=== PATIENT | female | born 1945 | race Caucasian/White ===

== ENCOUNTER 2017-11-18 06:29 | Day surgery (SDC) | payer OTHER ==
[~2017-11-18] VITALS: Ht 149.9 cm; Wt 70.3 kg
--- NOTE | ~2017-11-18 | O ---
[facility] [place] [address] OPERATIVE REPORT Name: ARNEL GODFREY Room #: DEP [facility] M.R.#: [id number] Admission: 11/18/17 Attend Phys: Boubacar Nava MD Discharge: 11/18/17 Date of : 47 Report #: [id number] THIS REPORT FOR: //name// CC: MARISOL Nava DATE OF SERVICE: 11/18/2017 PREOPERATIVE DIAGNOSES: Graves' disease, complete right-sided lid margin adhesion with complete visual occlusion. POSTOPERATIVE DIAGNOSES: Graves' disease, complete right-sided lid margin adhesion with complete visual occlusion. PROCEDURE: Right lid margin resection with reconstruction. SURGEON: Boubacar Nava M.D. POT HOLDER BINDER: None. ANESTHESIA: General. COMPLICATIONS: None. INDICATIONS FOR SURGERY: This pleasant 72-year-old woman with Graves' disease. 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 She presents today for a right lid margin resection and reconstruction in order to allow her to open the eye and allow her some useful vision out of that side. Informed consent was obtained to include but not limited to the potential risk for loss of vision, bleeding, infection and the potential need for reocclusion of the right eye if her cornea does not tolerate the eye being open. A lengthy discussion was undertaken as the prior procedure generally not undertaken without considerable duress and corneal decompensation. She understood the situation quite well and did want to have the eye open. DESCRIPTION OF PROCEDURE: The patient was taken to the operating room where general anesthesia was administered. The right upper and right lower lids were then anesthetized transcutaneously with Xylocaine with epinephrine mixed with Marcaine and Wydase. [facility] [address] [place] [address] OPERATIVE REPORT Name: ARNEL GODFREY Room #: DEP [facility].#: [id number] Admission: 11/18/17 Attend Phys: Boubacar Nava MD Discharge: 11/18/17 Date of : 47 Report #: [id number] A groove director was then placed behind the medial aspect of the lid margin adhesion where a high-temp cautery and Jesús scissor were used in an intermittent nature to go back through and separate the upper and lower lid margins. The lid margin was smoothed as it was reconstructed with a Vito scissor line conjunctiva to coapt over the lid margin. The palpebral aperture was opened to approximately 75% of what she had on the other side to keep some aspect of the lid margin still adherent temporally to reduce the risk of more problems with her cornea. The underlying cornea appeared to be relatively clear. An additional aliquot of anesthetic was then administered to the superior and inferior fornix at the end of the case in order to limit her postoperative discomfort. Erythromycin was then placed on the eye, and the patient subsequently transported to the recovery area having tolerated the procedure well with no anesthetic or operative complications being noted. <ELECTRONICALLY SIGNED> By: Boubacar Nava MD 11/22/17 0618 [id number] Boubacar Nava MD /nt
[~2017-11-18 06:29] MED LIST: ASPIR 8181 MG PO; CLARITIN10 MG PO; GARLIC1000 MG PO; LEVOTHYROXINE137 MCG PO; MEGARED OMEGA-1 EACH PO; MULTIVITAMINS1 EAC4 PO; VITAMIN B12-FO1 EAC1 PO; VITAMIN D1000 UNI2 PO
[2017-11-18 08:56] VITALS: BP 133/54
== END 2017-11-18 11:27 | disposition home or self-care (01) ==
LOC: OR 06:29 → TBA 06:30 → OR 09:11
DX: H02.59 Other disorders affecting eyelid function (principal); H53.8 Other visual disturbances; E05.00 Thyrotoxicosis with diffuse goiter without thyrotoxic crisis or storm; E03.9 Hypothyroidism, unspecified; Z88.8 Allergy status to other drugs, medicaments and biological substances; Z79.82 Long term (current) use of aspirin; Z79.899 Other long term (current) drug therapy; Z87.891 Personal history of nicotine dependence; Z90.89 Acquired absence of other organs; Z98.890 Other specified postprocedural states
CPT/HCPCS: 50010; 50101; 50386; 50398; 51636; 62110; 62900; 70005